=== PATIENT | female | born 1955 | race Caucasian/White ===

== ENCOUNTER 2024-04-18 14:46 | Emergency (ER) | payer OTHER, SELFPAY ==
--- NOTE | ~2024-04-18 | XR_ITS ---
EXAMINATION: XR ankle LT min 3V DATE: 04/18/2024 15:11 INDICATION: Left ankle pain. Fall. TECHNIQUE: 4 views of left ankle were obtained. COMPARISON: None. FINDINGS: There is a comminuted fracture of distal fibula. There is an oblique fracture component of distal fibula with medial aspect 2 mm distal to the level of the tibial plafond where the distal frac ture fragment demonstrates 2 mm posterolateral displacement. There is a nondisplaced avulsion fractur e component at anteroinferior tip of distal fibula. Joint spaces are normal. There are enthesophytes at the posterior and plantar aspects of calcaneal tuberosity. IMPRESSION: 1. Comminuted fracture of distal fibula. Reviewed, dictated and finalized at location B.
[2024-04-18 14:55] VITALS: BP 109/90; PULSE 111; RESP 18; TEMP 37.3; O2SAT 97
--- NOTE | 2024-04-18 14:57 | ED_ITS ---
HPI - Extremity Injury (Lower) General Chief Complaint: Extremity Injury, Lower Stated Complaint: Left Ankle Injury Source: patient Mode of arrival: ambulatory Limitations: no limitations History of Present Illness HPI Narrative: 69 y/o female presented for c/o left ankle pain, bruising and swelling following an injury 3 days ago. States she was getting into a car when she fell out and struck her head and back on concrete. Says the ankle was not xrayed when she was seen at an outside hospital following the fall. States the head, neck and back, and knee were imaged and are ok. Took hydrocodone for chronic back pain but says it did not help. Says she continues to walk but has fallen 2 more times since the fall due to being 'off balance' because of the ankle pain. Denies headache, dizziness, nausea, or vision changes. denies numbness, tingling, weakness or deformity. Related Data Home Medications ?Medication ?Instructions ?Recorded ?Confirmed ?Last Taken ?Type albuterol sulfate 90 mcg/actuation inhalation 04/18/24 Unknown History aerosol inhaler esomeprazole magnesium 40 mg mg 04/18/24 Unknown History capsule,delayed release fluconazole 150 mg tablet mg 04/18/24 Unknown History furosemide 20 mg tablet mg 04/18/24 Unknown History hydrocodone 7.5 mg-acetaminophen tablet 04/18/24 Unknown History 325 mg tablet losartan 25 mg tablet mg 04/18/24 Unknown History montelukast 10 mg tablet mg 04/18/24 Unknown History naproxen 500 mg tablet mg 04/18/24 Unknown History rosuvastatin 20 mg tablet mg 04/18/24 Unknown History Allergies Allergy/AdvReac Type Severity Reaction Status Date / Time morphine Allergy Unknown Unknown Verified 04/18/24 15:04 Sulfa (Sulfonamide Allergy Unknown Unknown Verified 04/18/24 15:04 Antibiotics) Review of Systems Review of Systems: CONSTITUTIONAL: Denies body aches, fever, chills CARDIOVASCULAR: Denies chest pain, palpitations, or edema. RESPIRATORY: Denies cough or dyspnea. GASTROINTESTINAL: Denies abdominal pain, nausea, vomiting, or diarrhea. SKIN: Denies rash, itching, or wounds. MUSCULOSKELETAL: reports left ankle pain, wheezing and swelling NEUROLOGIC: Denies headache, numbness, tingling, or weakness. PSYCH: Denies depression or anxiety. All systems reviewed & are unremarkable except as noted in HPI and below PMFSH Comments At time of signature, I have reviewed and agree with nursing past medical, surgical, social and family history unless otherwise noted. Please see nursing chart for further information. There is no relevant family history pertinent to the presenting complaint Exam Narrative: GENERAL: Well-appearing CHEST: Speaks in full sentences. No respiratory distress. HEART: Regular rate and rhythm. Normal and equal peripheral pulses. EXTREMITIES: Left foot has normal strength and sensation, Limited range of motion with flexion/extension/rotation of the ankle, due to pain with movement. moderate lateral ankle swelling and ecchymosis with tenderness. No open wounds, or obvious deformity; alignment normal, pulse palpable and equal bilaterally, skin warm, dry, pink. Capillary refill less than 3 seconds. SKIN: Warm, dry. NEURO: Alert and oriented x3. PSYCH: Normal mood and affect Course Course Emergency Course: Patient is aware of diagnosis, understands and agrees to treatment plan. Anticipatory guidance given. Patient agrees to follow-up as directed and is aware of reasons to seek care at the emergency department. Portions of this record may have been created with voice recognition software Level of Care: Express Care Visit Vital Signs Vital signs: Vital Signs Temperature 99.2 F 04/18/24 14:55 Pulse Rate 111 H 04/18/24 14:55 Respiratory Rate 18 04/18/24 14:55 Blood Pressure 109/90 04/18/24 14:55 Pulse Oximetry 97 04/18/24 14:55 Oxygen Delivery Room Air 04/18/24 14:55 Temperature 99.2 F 04/18/24 14:55 Pulse Rate 111 H 04/18/24 14:55 Respiratory Rate 18 04/18/24 14:55 Blood Pressure 109/90 04/18/24 14:55 Pulse Oximetry 97 04/18/24 14:55 Oxygen Delivery Room Air 04/18/24 14:55 Reviewed MDM - Extremity Injury (Lower) MDM Narrative Medical decision making narrative: Discussed physical exam findings and x-ray, comminuted fracture of the distal fibula. Patient is unable to tolerate crutches. She is advised at length the need to purchase a walking boot and call for follow up appointment. v/u. Provided with Dr Madrigal's contact information. Advised supportive measures and signs/symptoms to go to the ER. Pt is appropriate for outpt treatment and f/u. Differential Diagnosis Differential diagnosis: Likely ankle sprain and strain and ankle fracture Discharge Plan Discharge Clinical Impression: Fracture of distal end of fibula Qualifiers: Encounter type: initial encounter Fracture type: closed Fracture morphology: other fracture Laterality: left Qualified Code(s): S82.832A - Other fracture of upper and lower end of left fibula, initial encounter for closed fracture Patient Disposition: Home, Self-Care Condition: Stable Instructions: Ankle Fracture (ED), Walking Boot (ED) Additional Instructions: Rest, ice and elevate the left leg Motrin 600mg every 8 hours, as needed, for pain (take with food). Tylenol 1000mg every 8 hours (not to exceed 3000mg in 24 hours total from all sources including hydrocodone). You need to purchase a walking boot ([employer] or a medical supply store). Limit walking. Go to the ER immediately for increased pain, tingling/numbness, swelling, redness, etc Notify your primary care provider today Follow up with Orthopedic Surgery (Dr Madrigal) in 1-2 days for further evaluation - please call today for an appointment. Patient Language: Belarusian Prescriptions: No Action fluconazole 150 mg tablet hydrocodone-acetaminophen 7.5-325 mg tablet esomeprazole magnesium 40 mg capsule,delayed release(DR/EC) losartan 25 mg tablet montelukast 10 mg tablet furosemide 20 mg tablet albuterol sulfate 90 mcg/actuation HFA aerosol inhaler INHALATION naproxen 500 mg tablet rosuvastatin 20 mg tablet Follow-up/Referrals: Omar,MD Dru [Primary Care Provider] - Davin Madrigal MD [Physician] - (Comminuted fracture of distal fibula.)
--- OUTSIDE RECORDS SUMMARY | 2024-04-18 16:36 | XMS_ITS | CONTINUITY OF CARE DOCUMENT ---
Author Name george vazquez Address Unknown Organization [facility] Address [address] [place] [address] [address] [place] [address] Phone [phone] Care Team Providers Care Medical Associate Name Role Phone george vazquez Unavailable Unavailable
--- OUTSIDE RECORDS SUMMARY | 2024-04-18 16:37 | XMS_ITS | Clinical Summary ---
Author Organization [facility] Address [address] [place] [id number] Phone Care Team Providers Care Water Conservation Specialist Name Role Phone Dru Nelson MD Primary Care Provider [phone] Active Problems Problem Noted Date Diagnosed Date Major depressive disorder, recurrent episode, mo derate 09/14/2017 Major depressive disorder, recurrent episode, mo derate 09/14/2017 Alcoholism /alcohol abuse 09/14/2017 Social History Tobacco Use Types Packs/Day Years Used Date Smoking Tobacco: Never Smokeless Tobacco: Never Alcohol Use Standard Drinks/Week Comments Yes 8 (1 standard drink = 0.6 oz pure alcohol) was drinking 12 pk beer a day and shots Dtox's week ago Sexually Active Control Partners Comments Yes None Male Comments Unknown Sex and Gender Information Value Date Recorded Sex Assigned at Not on file Legal Sex Female 12:13 AM CDT Gender Identity Not on file Sexual Orientation Not on file Plan of Treatment Health Maintenance Due Date Last Done Comments Hepatitis C Virus (HCV) Screening 1955 Colonoscopy 02/06/2001 Colorectal Cancer Screening 02/06/2001 Cologuard 02/06/2006 Immunochemical Fecal Occult Blood 02/06/2006 Zoster Immunization (2 of 2) 05/18/2019 03/23/2019 Influenza Immunization (#1) 2023 10/0 02/2022, 02/24/2021, 03/21/2020, Additional history exists SARS-COV-2 Immunization ( season) 2023 02/24/2021, 08/28/2020, 08/07/2020 Mammogram 05/22/2024 05/23/2023 DEXA Bone Density 07/10/2025 07/11/2023 Respiratory Syncytial Virus (RSV) Immunization (Adult) (1 - 1-dose 75+ series) 02/06/2031 TdaP Immunization Completed 04/01/2008 DTaP/Tdap/Td Immunization Discontinued 08/03/2016, Pneumococcal Immunization (50+ years) Completed 05/16/2023, 04/08/2021, 07/01/2003 Pneumococcal Immunization Combined Discontinued 05/16/2023, 04/08/2021, 07/01/2003 Hepatitis B Immunization Aged Out No longer eligible based on patient's age to complete this topic Meningococcal Immunization (ACWY) Aged Out No longer eligible based on patient's age to complete this topic Rotavirus Immunization Aged Out No lo nger eligible based on patient's age to complete this topic Insurance MEDICARE MEDICAID [place] Care Teams Water Conservation Specialist Relationship Specialty Start Date End Date Dru Nelson MD PCP - General Internal Medicine 08/19/17
--- OUTSIDE RECORDS SUMMARY | 2024-04-18 16:37 | XMS_ITS | Clinical Summary ---
Author Organization [facility] Address [address] [place] [address] Care Team Providers Care Records Specialist Name Role Phone Dru Nelson MD Primary Care Provider [phone] Heather Jang RN Unavailable [phone] Source Comments [facility],non-owned Affiliates and Associated Physician Practices is amultiple site organization consisting of ambulatory clinics and hospital sitesin [place], [place]. This disclosure is being madepursuant to the Care Everywhere program and may not contain all information available regarding this patient. Last updated 17.[facility] Allergies Active Allergy Reactions Criticality Noted Date Comments Adhesive Sensitivity 05/12/2015 Amoxicillin 05/12/2015 Neomycin-Polymyxin B 05/12/2015 CERTAIN ANTIBIOTICS Aspirin 05/12/2015 Ciprofloxacin 05/12/2015 Morphine Nausea and/or Vomiting 05/12/2015 Sulfa Drugs 05/12/2015 Sulfanilamide 05/12/2015 Medications * Be aware that medications may not be up to date on this document. Alwaysverify current medications with the patient. Medication Sig Dispensed Refills Start Date End Date Status citalopram (CELEXA) 20 MG tablet Take 20 mg by mouth once daily Active estradiol (ESTRACE) 0.1 MG/GM vaginal cream Insert into the vagina every Tuesday & Active Multiple Vitamin (MULTI VITAMIN DAILY PO) Take by mouth once daily Active montelukast (SINGULAIR) 10 MG tablet Take 1 (one) tablet by mouth at bedtime Active omeprazole (PRILOSEC) 20 MG capsule Take 2 (two) capsules by mouth 2 times daily, before breakfast and supper Active phentermine-topiram ate 24hr (QSYMIA) 7.5-46 MG capsule Take 1 (one) capsule by mouth once daily Active levalbuterol (XOPENEX) 45 MCG/ACT inhaler Inhale 2 (two) puffs by mouth every 6 hours as needed Active meclizine (ANTIVERT) 12.5 MG tablet Take 2 (two) tablets by mouth 3 times daily with meals Active vitamin D3 (CHOLECACIFEROL) 5000 UNITS Take 1 (one) tablet by mouth once daily Active CRESTOR 10 MG tablet TAKE 1 TABLET BY ORAL ROUTE EVERY DAY 11 11/17/2015 Active ADVAIR DISKUS 250-50 MCG/DOSE inhaler INHALE 1 PUFFS BY MOUTH TWICE A DAY IN AM AND PM APPROXIMATELY 12 HOURS APART 05/25/2016 Active HYDROcodone-acetami nophen (NORCO) 7.5-325 MG tablet Take 1 (one) tablet by mouth every 6 hours as needed pain 0 06/02/2016 Active lisinopril (PRINIVIL;ZESTRIL) 5 MG tablet Take 1 (one) tablet by mouth once daily 05/25/2016 Active albuterol HFA (Proventil; Ventolin; Proair) 108 (90 Base) MCG/ACT inhaler Inhale 2 (two) puffs by mouth every 6 hours as needed Active albuterol (Proventil;Ventolin ) (2.5 MG/3ML) 0.083% nebulizer solution Inhale by mouth 4 times daily as needed for Shortness of Breath or Wheezing Active azithromycin (Zithromax) 250 MG tablet Take 1 (one) tablet by mouth once daily Active budesonide-formoter ol (Symbicort) 160-4.5 MCG/ACT inhaler Inhale 2 (two) puffs by mouth 2 times daily Active cyanocobalamin (Vitamin B-12) injection Inject 1,000 (one thousand) mcg into muscle Active cyclobenzaprine (Flexeril) 10 MG tablet Take 1 (one) tablet by mouth 3 times daily as needed for Muscle Spasms Active fluticasone propionate (Flonase) 50 MCG/ACT nasal spray Cheraw 2 (two) sprays into each nostril once daily Active furosemide (Lasix) 20 MG tablet Take 1 (one) tablet by mouth once daily Active naproxen (Naprosyn) 250 MG tablet Take 1 (one) tablet by mouth 2 times daily Active sertraline (Zoloft) 100 MG tablet Take 1 (one) tablet by mouth once daily Active Active Problems No known active problems Family History Medical History Relation Name Comments CAD (Coronary Artery Disease) Father COPD - Chronic Obstructive Pulmonary Disease Father Diabetes Father Heart Failure Father Stroke Father Arthritis - Osteo Mother Arthritis - Rheumatoid Mother Asthma Mother CAD (Coronary Artery Disease) Mother COPD - Chronic Obstructive Pulmonary Disease Mother Cataract Mother Heart Failure Mother Other Mother Arthritis - Osteo Sister 1 Migraine Sister 1 Thyroid Disease Sister 1 Cancer Sister 2 Relation Name Status Comments Brother 1 Alive Brother 2 Father Mother Sister 1 Alive Sister 2 Alive Sister 3 Alive Sister 4 Sister 5 Sister 6 Sister 7 Social History Tobacco Use Types Packs/Day Years Used Date Smoking Tobacco: Never Smokeless Tobacco: Never Tobacco Cessation:Counseling Given: Not Answered Alcohol Use Standard Drinks/Week Comments Yes 0 (1 standard drink = 0.6 oz pur e alcohol) RARELY Sex and Gender Information Value Date Recorded Sex Assigned at Not on file Gender Identity Not on file Sexual Orientation Not on file Last Filed Vital Signs Vital Sign Reading Time Taken Comments Blood Pressure 115/65 05/19/2015 8:01 AM CDT Pulse 105 01/17/2019 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 Temperature 36.9 C (98.4 F) 01/17/2019 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 Respiratory Rate 17 05/19/2015 8:01 AM CDT Oxygen Saturation 98% 01/17/2019 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 Inhaled Oxygen Concentration - - Weight 86.2 kg (190 lb) 04/27/2023 10:31 AM CDT Height 167.6 cm (5' 6 ) 04/27/2023 10:31 AM CDT Body Mass Index 30.67 04/27/2023 10:31 AM CDT Plan of Treatment Health Maintenance Due Date Last Done Comments COLOGUARD (AGES 45-75) - COLON CA SCREENING 1955 COLON MONITORING 1955 COLONOSCOPY - COLON CA SCREENING 1956 CT COLONOGRAPHY - COLON CA SCREENING 1955 Colorectal Cancer Screening 1955 FIT - COLON CA SCREENING 1955 FLEX SIG - COLON CA SCREENING 1955 HEPATITIS C SCREENING 02/02/1974 DTAP/TDAP/TD VACCINES (1 - Tdap) 02/06/1975 PNEUMOCOCCAL VACCINE 50+ (1 of 1 - PCV) 02/06/2006 ZOSTER VACCINE (1 of 2) 02/06/2006 MAMMOGRAM 04/10/2023 04/09/2021, 03/0 04/2021, 04/07/2020, Additional history exists SCREENING FOR DIABETES 04/27/2023 COVID-19 VACCINE ( season) 2023 08/28/2020, 08/07/2020 INFLUENZA VACCINE (#1) 2023 , 10/18/2018, 11/21/2017, Additional history exists DEPRESSION SCREENING 02/08/2024 MEDICARE AWV CALENDAR YEAR 2024 Respiratory Syncytial Virus (RSV) Vaccine Pt: or over 60 yrs (1 - 1-dose 75+ series) 02/06/2031 BONE DENSITY TESTING Completed 04/09/2021, 11/22/19 HEPATITIS B VACCINE Aged Out No longe r eligible based on patient's age to complete this topic HIB VACCINE Aged Out No longer eligi ble based on patient's age to complete this topic HPV VACCINE Aged Out No longer eligi ble based on patient's age to complete this topic MENINGOCOCCAL (Group B) VACCINE SHARED DECISION-MAKING Aged Out No longer eligible based on patient's age to complete this topic MENINGOCOCCAL GROUPS A/C/Y/W VACCINE Aged Out No longer eligible based on patient's age to complete this topic Medical Devices Implanted Type Area Charter Boat Captain Device Identifier Shelf Expiration Date Model / Serial / Lot Implt Frz Dried Strut Ab 11.0-24.9cm Implanted:Qty : 1 on 05/15/2015 by You Mixon II, MD at [facility] Spine Cervical [employer] 12/15/2019 [id number] / [id number] / Cbl Sgl Flom W/ Crmp Ti Implanted:Qty : 2 on 05/15/2015 by You Mixon II, MD at [facility] Spine Cervical Medtronic Sofamor [employer] 03/16/2022 [id number] / / [id number] Scrw Vertex 3.5mm X 12mm Implanted:Qty : 9 on 05/15/2015 by You Mixon II, MD at [facility] Spine Cervical Medtronic Sofamor [employer] [id number] / / St Scrw Vertex Implanted:Qty : 9 on 05/15/2015 by You Mixon II, MD at [facility] Spine Cervical Medtronic Sofamor [employer] [id number] / / Scrw Vertex Mult Axial 4.0mm X 14mm Implanted:Qty : 1 on 05/15/2015 by You Mixon II, MD at [facility] Spine Cervical Medtronic Sofamor [employer] [id number] / / Vertex Nicola Implanted:Qty : 2 on 05/15/2015 by You Mixon II, MD at [facility] Spine Cervical Med[employer] Inc [id number] / / Medium Crosslink Implanted:Qty : 1 on 05/15/2015 by You Mixon II, MD at [facility] Spine Cervical Med[employer] Inc [id number] / / Advance Directives * Full Code (Latest Code Status on File) Date Activated Date Inactivated Comments 05/15/2015 5:40 PM 05/19/2015 10:49 AM Care Teams Records Specialist Relationship Specialty Start Date End Date Dru Nelson MD PCP - General Internal Medicine 05/12/15 Heather Jang RN Care Analyst 05/19/15
--- OUTSIDE RECORDS SUMMARY | 2024-04-18 16:37 | XMS_ITS | Patient Health Summary ---
Author Organization [facility] Address [address] [place] [address] Care Team Providers Care Radiologic Technology Program Director Name Role Phone Dru Nelson MD Primary Care Provider [phone] Heather Jang RN Unavailable [phone] [facility],non-owned Affiliates and Associated Physician Practices is amultiple site organization consisting of ambulatory clinics and hospital sitesin [place], [place], [place] and [place]. This disclosure is being madepursuant to the Care Everywhere program and may not contain all information available regarding this patient. Last updated 17.[facility] Allergies * Adhesive Sensitivity * Amoxicillin * Neomycin-Polymyxin B(CERTAIN ANTIBIOTICS) * Aspirin * Ciprofloxacin * Morphine(Nausea and/or Vomiting) * Sulfa Drugs * Sulfanilamide Medications * Be aware that medications may not be up to date on this document. Alwaysverify current medications with the patient. * citalopram (CELEXA) 20 MG tablet Take 20 mg by mouth once daily * estradiol (ESTRACE) 0.1 MG/GM vaginal cream Insert into the vagina every Tuesday & * Multiple Vitamin (MULTI VITAMIN DAILY PO) Take by mouth once daily * montelukast (SINGULAIR) 10 MG tablet Take 1 (one) tablet by mouth at bedtime * omeprazole (PRILOSEC) 20 MG capsule Take 2 (two) capsules by mouth 2 times daily, before breakfast and supper * phentermine-topiramate 24hr (QSYMIA) 7.5-46 MG capsule Take 1 (one) capsule by mouth once daily * levalbuterol (XOPENEX) 45 MCG/ACT inhaler Inhale 2 (two) puffs by mouth every 6 hours as needed * meclizine (ANTIVERT) 12.5 MG tablet Take 2 (two) tablets by mouth 3 times daily with meals * vitamin D3 (CHOLECACIFEROL) 5000 UNITS Take 1 (one) tablet by mouth once daily * CRESTOR 10 MG tablet(Started 11/17/2015) TAKE 1 TABLET BY ORAL ROUTE EVERY DAY 11 refills left * ADVAIR DISKUS 250-50 MCG/DOSE inhaler(Started 05/25/2016) INHALE 1 PUFFS BY MOUTH TWICE A DAY IN AM AND PM APPROXIMATELY 12 HOURS APART 5 refills left * HYDROcodone-acetaminophen (NORCO) 7.5-325 MG tablet(Started 06/02/2016) Take 1 (one) tablet by mouth every 6 hours as needed pain * lisinopril (PRINIVIL;ZESTRIL) 5 MG tablet(Started 05/25/2016) Take 1 (one) tablet by mouth once daily 11 refills left * albuterol HFA (Proventil; Ventolin; Proair) 108 (90 Base) MCG/ACT inhaler Inhale 2 (two) puffs by mouth every 6 hours as needed * albuterol (Proventil;Ventolin) (2.5 MG/3ML) 0.083% nebulizer solution Inhale by mouth 4 times daily as needed for Shortness of Breath or Wheezing * azithromycin (Zithromax) 250 MG tablet Take 1 (one) tablet by mouth once daily * budesonide-formoterol (Symbicort) 160-4.5 MCG/ACT inhaler Inhale 2 (two) puffs by mouth 2 times daily * cyanocobalamin (Vitamin B-12) injection Inject 1,000 (one thousand) mcg into muscle * cyclobenzaprine (Flexeril) 10 MG tablet Take 1 (one) tablet by mouth 3 times daily as needed for Muscle Spasms * fluticasone propionate (Flonase) 50 MCG/ACT nasal spray [place] 2 (two) sprays into each nostril once daily * furosemide (Lasix) 20 MG tablet Take 1 (one) tablet by mouth once daily * naproxen (Naprosyn) 250 MG tablet Take 1 (one) tablet by mouth 2 times daily * sertraline (Zoloft) 100 MG tablet Take 1 (one) tablet by mouth once daily Active Problems No known active problems Social History Tobacco Use Types Packs/Day Years [...] AM CDT Pulse 105 01/17/2019 12:31 PM RN ON SITE Temperature 36.9 C (98.4 F) 01/17/2019 12:31 PM RN ON SITE Respiratory Rate 17 05/19/2015 8:01 AM CDT Oxygen Saturation 98% 01/17/2019 12:31 PM RN ON SITE Inhaled Oxygen Concentration - - Weight 86.2 kg (190 lb) 04/27/2023 10:31 AM CDT Height 167.6 cm (5' 6 ) 04/27/2023 10:31 AM CDT Body Mass Index 30.67 04/27/2023 10:31 AM CDT Medical Devices Implanted Type Area Forgesmith Device Identifier Shelf Expiration Date Model / Serial / Lot Implt Frz Dried Strut Ab 11.0-24.9cm Implanted:Qty : 1 on 05/15/2015 by You Mixon II, MD at [facility] Spine Cervical [employer] 12/15/2019 [id number] / [id number] / Cbl Sgl [place] W/ Crmp Ti Implanted:Qty : 2 on 05/15/2015 by You Mixon II, MD at [facility] Spine Cervical Med[employer] 03/16/2022 [id number] / / [id number] Scrw Vertex 3.5mm X 12mm Implanted:Qty : 9 on 05/15/2015 by You Mixon II, MD at [facility] Spine Cervical Med[employer] [id number] / / St Scrw Vertex Implanted:Qty : 9 on 05/15/2015 by You Mixon II, MD at [facility] Spine Cervical [employer] [id number] / / Scrw Vertex Mult Axial 4.0mm X 14mm Implanted:Qty : 1 on 05/15/2015 by You Mixon II, MD at [facility] Spine Cervical Med[employer] [id number] / / Vertex [place]ola Implanted:Qty : 2 on 05/15/2015 by You Mixon II, MD at [facility] Spine Cervical [employer] Inc [id number] / / Medium Crosslink Implanted:Qty : 1 on 05/15/2015 by You Mixon II, MD at [facility] Spine Cervical [employer] Inc [id number] / / Procedures * MRI CERVICAL SPINE WWO CONT(Performed 05/10/2023) Performed for Neck pain * VAS ARTERIAL ANKLE ARM INDEX(Performed 01/17/2019) Performed for Peripheral vascular disease (HCC) * XR CERVICAL SPINE 2 OR 3VW(Performed 06/16/2016) Performed for Neck pain * IMAGING/RADIOLOGY/XRAY RESULTS ORDER(Performed 06/09/2016) * XR CERVICAL SPINE 2 OR 3VW(Performed 12/03/2015) Performed for S/P cervical spinal fusion * XR CERVICAL SPINE 2 OR 3VW(Performed 08/27/2015) Performed for S/P cervical spinal fusion * XR CERVICAL SPINE 2 OR 3VW(Performed 07/01/2015) Performed for Neck pain, Status post cervical spinal fusion * LAB RESULTS ORDER(Performed 05/20/2015) * EMG(Performed 05/20/2015) * CARDIAC EKG ORDER(Performed 05/20/2015) * XR CERVICAL SPINE 2 OR 3VW(Performed 05/16/2015) Performed for Neck pain * PT EVAL AND TREAT(Performed 05/15/2015) * FL JONATHAN SURGERY 2 HRS PLUS(Performed 05/15/2015) Performed for Neck pain * FUSION POSTERIOR CERVICAL (PCF)(Performed 05/15/2015) * BLOOD TYPE VERIFICATION(Performed 05/15/2015) * TYPE + SCREEN PANEL(Performed 05/15/2015) * MRI CERVICAL SPINE WO CONTRAST(Performed 05/12/2015) Performed for Myelopathy (HCC) Results * MRI CERVICAL SPINE WWO CONT (05/10/2023 2:19 PM CDT) Anatomical Region Laterality Modality Spine Magnetic Resonan ce 05/10/2023 2:22 PM CDT Impressions 05/10/2023 2:55 PM CDT IMPRESSION: Spondylitic changes C2-3 with facet arthropathy and a mild central canal stenosis. Multilevel upper thoracic spinal canal stenoses including T1-T2 as well as T2-T3 secondary to disc bulges and facet arthropathy. Posterior laminectomies and metallic fixation C3-C7. Interval decompression of the spinal canal caliber at those segments. Edited by Judi Duffy on 05/10/2023 2:54 PM > Interpreting Provider: Fabian Reddy MD on 05/10/2023 2:55 PM Narrative 05/10/2023 2:55 PM CDT MRI CERVICAL SPINE WITH AND WITHOUT CONTRAST TECHNIQUE: Multisequence, multiplanar MRI sequences of the cervical spine with and without contrast. FINDINGS: Comparison May 12, 2015. The patient is status post posterior spinal fixation C3-C7. ACDF plate C6-7. Spinal fixation interval from 2016. There is no diffuse marrow replacing process. No intrinsic cord signal abnormality. Cord signal on the prior study at C4 has resolved. No generalized or focal marrow edema. C1-2: Slight ligamentum flavum thickening retrodental. This has thickened since 2016. 3.9 mm thickening of the ligament. The central canal caliber narrows down to 9.9 mm, previously 10.4 mm. C2-3: Facet arthropathy, right more severe than left. Posterior disc bulge extends back 3.4 mm, disc space height loss. Uncovertebral joint spurring bilateral C4 foramina. Facet joint spurs bilateral C4 foramina. C3-4: Postoperative. Postlaminectomy. No central or foraminal stenosis. C4-5: Postoperative. Postlaminectomy. No central or foraminal stenosis. C5-6: Postoperative. Post laminectomy. No central or foraminal stenosis. C6-7: Postlaminectomy as well as status post anterior fusion without central or foraminal stenosis. C7-T1: Postlaminectomy. The C8 foramen on the left shows a mild to moderate narrowing secondary to uncovertebral joint spurring. The right C8 foraminal narrowing is mild. Upper thoracic spine: T1-T2: Posterior disc bulging extends back 3 mm. Ligamentum flavum thickening. Facet joint degenerative changes bilaterally. The central canal caliber shows a moderate stenosis down to 7.7 mm. There is some flattening of the right ventral cord secondary to asymmetric protrusion of disc material. T2-3: Ligamentum flavum thickening. The central canal caliber narrows to an upper end of moderate 7 mm. The T2 foramina show mild foraminal narrowing bilaterally. No intrinsic thoracic cord signal abnormality. Postcontrast, there is no abnormal brain parenchymal or dural contrast enhancement. Procedure Note Fabian Reddy MD - 05/10/2023 MRI CERVICAL SPINE WITH AND WITHOUT CONTRAST TECHNIQUE: Multisequence, multiplanar MRI sequences of the cervicalspine with and without contrast. FINDINGS: Comparison May 12, 2015. The patient is status post posterior spinal fixation C3-C7. ACDF plate C6-7. Spinal fixation interval from 2016. There is no diffuse marrow replacing process. No intrinsic cord signal abnormality. Cord signal on the prior study at C4 has resolved. No generalized or focal marrow edema. C1-2: Slight ligamentum flavum thickening retrodental. This hasthickened since 2016. 3.9 mm thickening of the ligament. The central canal caliber narrows down to 9.9 mm, previously 10.4 mm. C2-3: Facet arthropathy, right more severe than left. Posterior discbulge extends back 3.4 mm, disc space height loss. Uncovertebral jointspurring bilateral C4 foramina. Facet joint spurs bilateral C4 foramina. C3-4: Postoperative. Postlaminectomy. No central or foraminal stenosis. C4-5: Postoperative. Postlaminectomy. No central or foraminal stenosis. C5-6: Postoperative. Post laminectomy. No central or foraminal stenosis. C6-7: Postlaminectomy as well as status post anterior fusion without central or foraminal stenosis. C7-T1: Postlaminectomy. The C8 foramen on the left shows a mild tomoderate narrowing secondary to uncovertebral joint spurring. The right [id number] narrowing is mild. Upper thoracic spine: T1-T2: Posterior disc bulging extends back 3 mm. Ligamentum flavum thickening. Facet joint degenerative changesbilaterally. The central canal caliber shows a moderate stenosis down to 7.7 mm.There is some flattening of the right ventral cord secondary to asymmetric protrusion of disc material. T2-3: Ligamentum flavum thickening. The central canal caliber narrows golden upper end of moderate 7 mm. The T2 foramina show mild foraminalnarrowing bilaterally. No intrinsic thoracic cord signal abnormality. Postcontrast, there is no abnormal brain parenchymal or dural contrast enhancement. IMPRESSION: Spondylitic changes C2-3 with facet arthropathy and a mild central canal stenosis. Multilevel upper thoracic spinal canal stenoses including T1-T2 as wellas T2-T3 secondary to disc bulges and facet arthropathy. Posterior laminectomies and metallic fixation C3-C7. Intervaldecompression of the spinal canal caliber at those segments. Edited by Judi Duffy on 05/10/2023 2:54 PM > Interpreting Provider: Fabian Reddy MD on 05/10/2023 2:55 PM You Mixon II, MD MR ORDERABL ES * VAS ARTERIAL ANKLE ARM INDEX (01/17/2019 2:07 PM RN ON SITE) Anatomical Region Laterality Modality Intravascular Ul trasound 01/17/2019 1:47 AM RN ON SITE Narrative Procedure Note Oswaldo Tapia MD - 01/19/2019 Sukumar Donaldson MD VASCULAR LAB ORDERAB LES * XR CERVICAL SPINE 2 OR 3 VW (06/16/2016 1:52 PM CDT) Only the most recent of5 resultswithin the time period is included. Anatomical Region Laterality Modality Spine Radiographic Janice ging 06/16/2016 1:53 PM CDT Impressions 06/16/2016 2:16 PM CDT 1. Postoperative changes as described. 2. Degenerative changes. 3. Loss of normal lordosis. Edited by Brigette Fragoso on 06/16/2016 2:09 PM Narrative 06/16/2016 2:16 PM CDT CERVICAL SPINE 3 VIEWS INDICATION: Neck pain and cervical spine pain. FINDINGS: AP, lateral and open-mouth odontoid views of the cervical spine compared to prior December 03, 2015 redemonstrates anterior fusion C6-7 with bony plate and screws. There is posterior fusion from C3 through C7 without change. There is no hardware complication. There is intervertebral disc space during C4-5, C5-6 and C6-7. There is loss of normal cervical lordosis. Prevertebral soft tissues are unremarkable. Procedure Note Bryant Casas MD - 06/16/2016 CERVICAL SPINE 3 VIEWS INDICATION: Neck pain and cervical spine pain. FINDINGS: AP, lateral and open-mouth odontoid views of the cervical spine compared to prior December 03, 2015 redemonstrates anterior fusion C6-7 with bony plate and screws. There is posterior fusion from C3 through C7 without change. There is no hardware complication. There is intervertebral disc space during C4-5, C5-6 and C6-7. There is loss of normal cervical lordosis. Prevertebral soft tissues are unremarkable. IMPRESSION 1. Postoperative changes as described. 2. Degenerative changes. 3. Loss of normal lordosis. Edited by Brigette Fragoso on 06/16/2016 2:09 PM You Mixon II, MD DIAGNOSTIC IMAGING ORDERABLES * IMAGING/RADIOLOGY/XRAY RESULTS ORDER (06/09/2016) Anatomical Region Laterality Modality Other Dru Nelson MD IMAGING * LAB RESULTS ORDER (05/20/2015 9:18 PM CDT) Narrative 05/20/2015 9:18 PM CDT Ordered by an unspecified provider. Scanned Document LAB - THERAPEUTIC DR NAGY MONITORING ORDERABLES * CARDIAC EKG ORDER (05/20/2015 9:18 PM CDT) Narrative 05/20/2015 9:18 PM CDT Ordered by an unspecified provider. Scanned Document CARDIAC SERVICES ORD ERABLES * EMG (05/20/2015 9:18 PM CDT) Narrative 05/20/2015 9:18 PM CDT Ordered by an unspecified provider. Scanned Document NEUROLOGY ORDERABLES * FL JONATHAN SURGERY 2 HRS PLUS (05/15/2015 12:15 PM CDT) Anatomical Region Laterality Modality Radiographic Janice ging 05/15/2015 1:08 PM CDT Narrative 05/15/2015 1:08 PM CDT Fluoroscopy was provided. No radiologist was present. Fluoroscopy time was 3 seconds. 3 fluoroscopic images were acquired. Procedure Note Lucina Lovell MD - 05/15/2015 Fluoroscopy was provided. No radiologist was present. Fluoroscopy time was 3 seconds. 3 fluoroscopic images were acquired. You Mixon II, MD FLUOROSCOPY ORDERABLES * BLOOD TYPE VERIFICATION (05/15/2015 8:53 AM CDT) ABO O 05/15/2015 10:31 AM CDT [facility] Rh Type Positive 05/15/2015 10:31 AM CDT [facility] Miscellaneous samples (specimen) BLOOD SPECIMEN / Unknown 05/15/2015 8:53 AM CDT 05/15/2015 8:56 AM CDT You Mixon II, MD LAB - BLOOD BANK ORDERABLES Performing Organization Address [facility] de Phone Number [facility] [id number] * TYPE + SCREEN PANEL (05/15/2015 8:04 AM CDT) ABO O 05/15/2015 10:32 AM CDT [facility] Rh Type Positive 05/15/2015 10:32 AM CDT [facility] Comment:History check perfor med. Retype required. Antibody Screen Negative 05/15/2015 10:32 AM CDT [facility] Miscellaneous samples (specimen) BLOOD SPECIMEN / Unknown 05/15/2015 8:04 AM CDT 05/15/2015 8:46 AM CDT You Mixon II, MD LAB - BLOOD BANK ORDERABLES Performing Organization Address [facility] Co de Phone Number [facility] [id number] * MRI SPINE CERVICAL NON CONTRAST (05/12/2015 10:44 AM CDT) Anatomical Region Laterality Modality Pelvis Magnetic Resonan ce 05/12/2015 10:5 4 AM CDT Impressions 05/12/2015 11:18 AM CDT There is abnormal signal intensity within the cervical spinal cord at C4. This is consistent with a contusion in the appropriate clinical setting. Cord edema of any etiology could result in this appearance. This is not associated with volume loss and is therefore not thought to represent myelomalacia. Findings were discussed by telephone with Don James on 05/12/2015 at 11:00. Edited by Adriana Gabriel on 05/12/2015 11:15 AM Narrative 05/12/2015 11:18 AM CDT MRI Cervical Spine Indication: Fell and hit head 6 days ago. Posterior neck pain with radiculopathy right arm and leg since fall. Prior surgery in 2012. Technique: The following sequences were obtained: Sagittal T1 and T2, axial T2 volume, sagittal STIR, coronal T2 myelogram, axial gradient-echo. Comparison: None. Alignment: There is straightening of the normal cervical lordosis. A retrolisthesis of C4 on C5 measures approximately 1 mm. The patient has undergone anterior cervical spinal fusion with placement of a fixation plate at the C6-7 level. Spinal cord: There is abnormal signal intensity within the cervical spinal cord at the C4 level. This is central and posterior in location. In the setting of acute trauma, this could represent a cord contusion. No hemorrhagic product is seen within the cervical spinal cord on STIR sequence. Marrow: Degenerative marrow changes are present adjacent the C4-5 and C5-6 disc. Intervertebral discs: There is moderate disc space narrowing at C4-5 and C5-6 and mild disc space narrowing at C3-4. Posterior disc bulges are present from C2-3 through C5-6. There is also a small disc bulge with loss of disc height at C7-T1 and at T1-2. The following levels were directly imaged in the axial plane: C2-C3: No significant disc herniation or stenosis is present. C3-C4: Diffuse disc bulge with a small central protrusion contacts the cervical spinal cord and results in a mild central canal stenosis. Neural foramen are mildly narrowed bilaterally, right greater than left. C4-C5: Diffuse disc bulge and osteophytic ridge results in a moderate central canal stenosis with deformity of the cervical spinal cord. Neural foramina are moderately narrowed on the left and mild to moderately narrowed on the right. C5-C6: Disc bulge results in a mild to moderate central canal stenosis. The right neural foramen and left neural foramen are moderately narrowed. C6-C7: This level has been surgically fused. There is no significant central canal or neural foraminal stenosis. C7-T1: Disc bulge results in a mild central canal stenosis. The left neural foramen is mildly narrowed and the right mild to moderately narrowed. T1-T2: Disc herniation eccentric to the right results in a minimal central canal stenosis. The right neural foramen is mildly narrowed. T2-T3: Facet arthropathy results in mild central canal and mild to moderate neural foraminal stenosis. Procedure Note Amy Peres MD - 05/12/2015 MRI Cervical Spine Indication: Fell and hit head 6 days ago. Posterior neck pain with radiculopathy right arm and leg since fall. Prior surgery in 2012. Technique: The following sequences were obtained: Sagittal T1 and T2, axial T2 volume, sagittal STIR, coronal T2 myelogram, axial gradient-echo. Comparison: None. Alignment: There is straightening of the normal cervical lordosis. A retrolisthesis of C4 on C5 measures approximately 1 mm. The patient has undergone anterior cervical spinal fusion with placement of a fixation plate at the C6-7 level. Spinal cord: There is abnormal signal intensity within the cervical spinal cord at the C4 level. This is central and posterior in location. In the setting of acute trauma, this could represent a cord contusion. No hemorrhagic product is seen within the cervical spinal cord on STIR sequence. Marrow: Degenerative marrow changes are present adjacent the C4-5 and C5-6 disc. Intervertebral discs: There is moderate disc space narrowing at C4-5 and C5-6 and mild disc space narrowing at C3-4. Posterior disc bulges are present from C2-3 through C5-6. There is also a small disc bulge with loss of disc height at C7-T1 and at T1-2. The following levels were directly imaged in the axial plane: C2-C3: No significant disc herniation or stenosis is present. C3-C4: Diffuse disc bulge with a small central protrusion contacts the cervical spinal cord and results in a mild central canal stenosis. Neural foramen are mildly narrowed bilaterally, right greater than left. C4-C5: Diffuse disc bulge and osteophytic ridge results in a moderate central canal stenosis with deformity of the cervical spinal cord. Neural foramina are moderately narrowed on the left and mild to moderately narrowed on the right. C5-C6: Disc bulge results in a mild to moderate central canal stenosis. The right neural foramen and left neural foramen are moderately narrowed. C6-C7: This level has been surgically fused. There is no significant central canal or neural foraminal stenosis. C7-T1: Disc bulge results in a mild central canal stenosis. The left neural foramen is mildly narrowed and the right mild to moderately narrowed. T1-T2: Disc herniation eccentric to the right results in a minimal central canal stenosis. The right neural foramen is mildly narrowed. T2-T3: Facet arthropathy results in mild central canal and mild to moderate neural foraminal stenosis. IMPRESSION There is abnormal signal intensity within the cervical spinal cord at C4. This is consistent with a contusion in the appropriate clinical setting. Cord edema of any etiology could result in this appearance. This is not associated with volume loss and is therefore not thought to represent myelomalacia. Findings were discussed by telephone with Don James on 05/12/2015 at 11:00. Edited by Adriana Gabriel on 05/12/2015 11:15 AM Don Chen MD MR ORDERABLES Care Teams Radiologic Technology Program Director Relationship Specialty Start Date End Date Dru Nelson MD PCP - General Internal Medicine 05/12/15 Heather Jang RN Administrative Nursing Supervisor 05/19/15
--- OUTSIDE RECORDS SUMMARY | 2024-04-18 16:37 | XMS_ITS | Referral Summary ---
Author Organization [facility] Address [address] [place] [address] Care Team Providers Care Wood Router Hand Name Role Phone Dru Nelson MD Primary Care Provider [phone] Heather Jang RN Unavailable [phone] Source Comments [facility],non-owned Affiliates and Associated Physician Practices is amultiple site organization consisting of ambulatory clinics and hospital sitesin [place], [place] and [place]. This disclosure is being madepursuant to the Care Everywhere program and may not contain all information available regarding this patient. Last updated 17.[facility] Allergies Active Allergy Reactions Criticality Noted Date [...] fluticasone propionate (Flonase) 50 MCG/ACT nasal spray [place] 2 (two) sprays into each nostril once daily Active furosemide (Lasix) 20 MG tablet Take 1 (one) tablet by mouth once daily Active naproxen (Naprosyn) 250 MG tablet Take 1 (one) tablet by mouth 2 times daily Active sertraline (Zoloft) 100 MG tablet Take 1 (one) tablet by mouth once daily Active Active Problems No known active problems Social [...] AM CDT Pulse 105 01/17/2019 12:31 PM MD PEDIATRIC ALLERGIST Temperature 36.9 C (98.4 F) 01/17/2019 12:31 PM MD PEDIATRIC ALLERGIST Respiratory Rate 17 05/19/2015 8:01 AM CDT Oxygen Saturation 98% 01/17/2019 12:31 PM MD PEDIATRIC ALLERGIST Inhaled Oxygen Concentration - - Weight 86.2 kg (190 lb) 04/27/2023 10:31 AM CDT Height 167.6 cm (5' 6 ) 04/27/2023 10:31 AM CDT Body Mass Index 30.67 04/27/2023 10:31 AM CDT Functional Status Functional Status Response Date of Assess ment Is person deaf or have serious hearing difficult y? No 05/15/2015 Is person blind or have serious difficulty seein g? No 05/15/2015 Does person have serious dif ficulty walking/climbing stairs? No 05/15/2015 Does person have difficulty dressing/bathing? No 05/15/2015 Does person have difficulty doing errands alone? No 05/15/2015 Cognitive Status Response Date of Assessm ent Does person have difficulty concentrating/remembering/making decisions? No 05/15/2015 Plan of Treatment Not on file Medical Devices Implanted Type Area Slab Off Mill Tender Device Identifier Shelf Expiration Date Model / Serial / Lot Implt Frz Dried Strut Ab 11.0-24.9cm Implanted:Qty : 1 on 05/15/2015 by You Mixon II, MD at [facility] Cervical [employer] 12/15/2019 [id number] / [id number] / Cbl Sgl Otis W/ Crmp Ti Implanted:Qty : 2 on 05/15/2015 by You Mixon II, MD at [facility] Spine Cervical Medtronic Sof[employer]or [employer] 03/16/2022 [id number] / / [id number] Scrw Vertex 3.5mm X 12mm Implanted:Qty : 9 on 05/15/2015 by You Mixon II, MD at [facility] Spine Cervical Med[employer]onic [employer] [id number] / / St Scrw Vertex Implanted:Qty : 9 on 05/15/2015 by You Mixon II, MD at [facility] Spine Cervical Medtronic [employer] [id number] / / Scrw Vertex Mult Axial 4.0mm X 14mm Implanted:Qty : 1 on 05/15/2015 by You Mixon II, MD at [facility] Spine Cervical Med[employer]onic [employer] [id number] / / Vertex Nicola Implanted:Qty : 2 on 05/15/2015 by You Mixon II, MD at [facility] Spine Cervical [employer] Inc [id number] / / Medium Crosslink Implanted:Qty : 1 on 05/15/2015 by You Mixon II, MD at [facility] Spine Cervical [employer] Inc [id number] / / Insurance Payer Benefit Plan / Group Subscriber ID Effective Dates Phone Address Type ESSENCE MEDICARE ESSENCE MEDICARE ADV HMO/POS [id number] 2023-Pres ent [address] [place] [address] Medicare-[place] [facility] MEDICAID - OUT OF STATE [place]ID [place] PUBLIC AID [id number] Effective for all dates [address] [address] [place] [address] Medicaid [place] [id number] 2016-Pres ent [address] [address] [place] [address] [facility] Name Account Type Relation to Patient Date of Phone Billing Address Cait Pulido Personal/Family Self 1955 [address] [place] [address] Cait Pulido Personal/Family Self 1955 [address] [place] [address] Advance Directives * Full Code (Latest Code Status on File) Date Activated Date Inactivated Comments 05/15/2015 5:40 PM 05/19/2015 10:49 AM Care Teams Wood Router Hand Relationship Specialty Start Date End Date Dru Nelson MD PCP - General Internal Medicine 05/12/15 Heather Jang RN Wharf Laborer 05/19/15
== END 2024-04-18 15:47 | disposition home or self-care (01) ==
PROVIDERS: Emergency Provider Nurse Practitioner Family; PCP Internal Medicine
DX: S82.832A Other fracture of upper and lower end of left fibula, initial encounter for closed fracture (principal); V48.4XXA Person boarding or alighting a car injured in noncollision transport accident, initial encounter; I10 Essential (primary) hypertension; E78.00 Pure hypercholesterolemia, unspecified; J45.909 Unspecified asthma, uncomplicated
CPT/HCPCS: 73610; 99203; G0463